=== PATIENT | female | born 1980 | race Two or more races ===

== ENCOUNTER 2020-03-26 00:23 | Emergency (ER) | payer MEDICAID ==
[~2020-03-26] VITALS: Ht 162.6 cm; Wt 79.4 kg
[2020-03-26 00:34] VITALS: BP 139/90
--- NOTE | 2020-03-26 00:35 | NUR ---
ED Nurse Note: Patient walked into ED c/o cough that was worse tonight, patient reports of seasonal cough usually in the winter months, patient also reports that she has seen her PMD earlier this week and was prescribed amoxicillin and promethazine however has found no relief with prescriptions. o2 sat currently at 98% on room air. patient is able to make full sentences however patient has episodes where she coughs nonstop. patient is alert and oriented x4, ambulatory with a steady gait, VSS
[2020-03-26] MEDS ORDERED: PROMETHAZINE-C118 M1 ORAL (00:42)
[2020-03-26 00:45] VITALS: BP 125/73
--- NOTE | 2020-03-26 00:45 | NUR ---
ER DISCHARGE NOTE: Patient is cleared to be discharged per ERMD, pt is aox4, on room air, with stable vital signs. pt was given dc and prescription instructions, pt was able to verbalize understanding, pt id band removed without complications. pt is able to ambulate with steady gait. pt took all belongings.
--- NOTE | 2020-03-26 00:45 | Emergency Room Report ---
History of Present Illness General Chief Complaint: Upper Respiratory Illness Source: Patient Present Illness HPI Disclaimer: Please note that this report is being documented using [employer] technology. This can lead to erroneous entry secondary to incorrect interpretation by the dictating instrument. HPI: 39-year-old female presents for evaluation of cough. Reports symptoms present for the past 3 weeks. Worsening over the past 1 week. She lost her sense of smell and taste 1 week ago. Seen by her PMD and prescribed amoxicillin for bronchitis. Denies fever or chills. Denies shortness of breath. Worsening cough while laying down to sleep at night. Has used guaifenesin, Tessalon Perles, Robitussin, promethazine. States she was only able to sleep 1 or 2 hours a night because of persistent coughing. Has not been tested for COVID-19. No known sick contacts. Denies history of asthma or COPD. PMH: Denied PSH: Denies Allergies: Denied Social Hx: Denied alcohol or drug abuse Allergies: Coded Allergies: No Known Allergies (Unverified , 03/26/20) COVID-19 Screening Contact w/high risk pt: No Experienced COVID-19 symptoms?: No COVID-19 Testing performed [employer]: No Patient History Last Menstrual Period: march 15 2020 Nursing Documentation-PMH Past Medical History: No Stated History Review of Systems All Other Systems: negative except mentioned in HPI Physical Exam Vital Signs Date Time Temp Pulse Resp B/P (MAP) Pulse Ox O2 Delivery O2 Flow Rate FiO2 03/26/20 00:28 98.2 95 18 139/90 (106) 98 Room Air General: Awake and alert, no acute distress HEENT: NC/AT. EOMI. Resp: Normal work of breathing coughing during exam. No wheezing. No crackles. Skin: Intact. No abrasions, laceration or rash over the exposed skin MSK: Normal tone and bulk. Moving all extremities. No obvious deformity. Neuro: Awake and alert. Mentating appropriately Medical Decision Making Diagnostic Impression: Primary Impression: Suspected 2019-nCoV infection ER Course 39-year-old female presents for evaluation of persistent and worsening cough. Patient is already taking amoxicillin for bronchitis. Suspect COVID-19 infect ion given loss of sense of taste and smell. Refer to outpatient testing clinic. Will follow up with her PMD for any further labs or imaging as needed. Prescribed cough medicine. Otherwise well-appearing do not believe she requires emergent labs or imaging in the ER at this time. Instructed to return with new or worsening symptoms. Understands and agrees with treatment plan. Last Vital Signs Date Time Temp Pulse Resp B/P (MAP) Pulse Ox O2 Delivery O2 Flow Rate FiO2 03/26/20 00:34 98.2 98 18 139/90 98 Room Air Disposition: HOME, SELF-CARE Condition: Stable Scripts Codeine/Promethazine Hcl* (PROMETHAZINE-CODEINE SYRUP*) 118 Ml Syrup 5 ML ORAL Q4H PRN for For Cough for 5 Days, #100 ML 0 Refills Prov: Alverto Esparza MD 03/26/20 Patient Instructions: Upper Respiratory Infection, Adult Additional Instructions: Call your primary physician as soon as possible to discuss emergency department visit. You may require reevaluation or further testing per your doctor's recommendations. Limit your contact with others as much as possible over the next 14 days. Stay minimum of 6 feet away from others, do not attend large gatherings and clean and disinfect all heavily used surfaces. Follow CDC guidelines for isolation and infection prevention. If you experience any new or worsening symptoms discussed with your doctor or return to the emergency department for reevaluation. Alverto Esparza MD Mar 26, 2020 00:45
== END 2020-03-26 00:45 | disposition home or self-care (01) ==
LOC: EMR 00:40
DX: Z20.822 Contact with and (suspected) exposure to COVID-19 (principal); R05 Cough; R43.8 Other disturbances of smell and taste
CPT/HCPCS: 99282